=== PATIENT | male | born 1985 | race Caucasian/White ===

== ENCOUNTER 2023-11-04 16:31 | Emergency (ER) | payer OTHER, SELFPAY ==
[2023-11-04 16:38] VITALS: BP 131/74; PULSE 79; RESP 18; TEMP 36.4; O2SAT 97; BMI 27.4
--- NOTE | 2023-11-04 17:07 | CRLHL7_ITS ---
For Patients: As a result of the Cures Act, medical imaging exams and procedure reports are released immediately into your electronic medical record. You may view this report before your referring provider. If you have questions, please contact your health care provider. Indication: injury Technique: Three views of the left knee. Comparison: None. Findings: No acute displaced fracture or malalignment. Moderate knee joint effusion. Impression: No acute displaced fracture or malalignment. Moderate knee joint effusion. Dictated by Chris Mcelroy MD @ 11/04/2023 6:47:29 PM (Electronically Signed)
--- NOTE | 2023-11-04 17:55 | ED.LOWEXIN ---
HPI - Extremity Injury (Lower) General Chief Complaint: Extremity Pain/Injury, Lower Stated Complaint: L knee injury Time Seen by Provider: 11/04/23 16:35 History of Present Illness HPI Narrative: This 37-year-old male comes in with left knee pain. He states that it has been giving him some trouble on and off through the last 2 or 3 months but there was no specific injury event. More recently he was running to something as he was playing with his kids and again there was no specific injury event but the next day he had much more left knee pain. He comes in now stating that he has too much pain to bear weight. There appears to be a mild swelling of his left knee area. He is reporting pain primarily along the medial aspect of his left knee. He does not report any catching or locking and does not indicate any feeling of instability. He is able to flex and extend his knee normally. Related Data Home Medications ?Medication ?Instructions ?Recorded ?Confirmed No Known Home Medications 11/04/23 11/04/23 Previous Rx's ?Medication ?Instructions ?Recorded ketorolac 10 mg tablet 10 mg PO Q8H 5 days #15 tabs 11/04/23 Allergies Allergy/AdvReac Type Severity Reaction Status Date / Time No Known Drug Allergies Allergy Verified 11/04/23 16:38 Review of Systems Status of ROS: Reports: 10 or more systems reviewed and unremarkable except as noted in History and below Narrative: Constitutional: No fevers, no weight gain or loss. Eyes: No discharge. No vision changes. HENT: No congestion, no sore throat, no ear pain. Cardiovascular: No chest pain, no palpitations. Respiratory: No shortness of breath, no wheezes, no cough. Gastrointestinal: No abdominal pain, no vomiting, no diarrhea. Genitourinary: No dysuria, no hematuria. Musculoskeletal: Normal range of motion. Left knee pain as described above. Skin: No rashes, no pruritis. Neurological: No dizziness, weakness, sensory change, speech change. Endo/Heme/Allergies: No bruising or bleeding. No polydipsia. Pysch: no suicidality, no anxiety, no insomnia. All other systems reviewed and are negative. Exam Narrative: Exam Narrative: Constitutional: Well-developed, well-nourished, no acute distress. HEENT: Normocephalic, atraumatic. Neck: Normal range of motion. Nontender. Supple. Heart: Regular. No murmurs. Normal rate. Intact distal pulses. Lungs: Clear to auscultation. No chest discomfort. No wheezes, rhonchi, or rales. Abdomen: Normal bowel sounds. Nontender. No rebound tenderness. Genitalia: Deferred. Back: No midline tenderness. Normal range of motion. Extremities: Normal range of motion. Left knee has mild swelling but no obvious effusion. Mary Lou's test shows a good endpoint. He does show a bit more laxity under valgus stress and is reporting pain along the MCL. Silvina's test also elicited pain when rotating his ankle while and knee flexed. The pain was more localized in the posterior medial aspect of his left knee. Skin: Intact. No rash. Warm. No erythema or pallor. Neurologic: No altered sensation. No weakness. Alert and oriented. Psychiatric: No suicidality. No anxiety or depression. No insomnia. Nursing notes and vitals signs are reviewed. Const: Vital Signs, click to edit/add: Vital Signs - 24 hr 11/04/23 16:38 Temperature 97.6 F Pulse Rate [Pulse Oximeter] 79 Respiratory Rate 18 Blood Pressure [Ri t Upper Arm] 131/74 Pulse Oximetry 97 Oxygen Delivery Me thod Room Air Course Vital Signs Vital signs: Initial Vital Signs Temperature 97.6 F 11/04/23 16:38 Temperature Source Temporal Artery Scan 11/04/23 16:38 Pulse Rate 79 11/04/23 16:38 Respiratory Rate 18 11/04/23 16:38 Blood Pressure 131/74 11/04/23 16:38 Blood Pressure Mean 93 11/04/23 16:38 Pulse Oximetry 97 11/04/23 16:38 Oxygen Delivery Method Room Air 11/04/23 16:38 Vital Signs Temperature 97.6 F 11/04/23 16:38 Pulse Rate 79 11/04/23 16:38 Respiratory Rate 18 11/04/23 16:38 Blood Pressure 131/74 11/04/23 16:38 Pulse Oximetry 97 11/04/23 16:38 Oxygen Delivery Method Room Air 11/04/23 16:38 Temperature 97.6 F 11/04/23 16:38 Pulse Rate 79 11/04/23 16:38 Respiratory Rate 18 11/04/23 16:38 Blood Pressure 131/74 11/04/23 16:38 Pulse Oximetry 97 11/04/23 16:38 Oxygen Delivery Method Room Air 11/04/23 16:38 MDM - Extremity Injury (Lower) MDM Narrative Medical decision making narrative: This patient comes in with left knee pain as described above. An x-ray is obtained and by my review shows no sign of fracture or foreign object. The patient states that he can put a little bit a weight on his leg but does not care to ambulate on it because of pain. He did receive a knee immobilizer because there does appear to be some laxity of his MCL compared with his right leg. He also received crutches. He is advised to follow-up with orthopedic clinic for next available appointment. A prescription for Toradol as also provided. Discharge Plan Discharge Clinical Impression: Knee MCL sprain Patient Disposition: Home, Self-Care Condition: Unchanged Additional Instructions: Use knee immobilizer and crutches as needed for ambulating. Take medication also as needed and directed. Follow up with orthopedic clinic. Arrange appointment by dialing [phone]. Return if worsening. Prescriptions: New ketorolac 10 mg tablet 10 mg PO Q8H 5 Days Qty: 15 0RF No Action No Known Home Medications Follow Up/Referrals: Provider,Not a Local [Primary Care Provider] - Stand Alone Forms: [employer] Info Instructions
== END 2023-11-04 18:33 | disposition home or self-care (01) ==
PROVIDERS: Emergency Provider Emergency Medicine Emergency Medical Services
DX: S83.8X2A Sprain of other specified parts of left knee, initial encounter (principal)
CPT/HCPCS: 73562; 99283; 99284

== ENCOUNTER 2023-11-17 12:58 | Outpatient (CLI) | payer OTHER, SELFPAY ==
--- NOTE | 2023-11-17 13:00 | MR_ITS ---
[address] [address] Phone:?[phone] Fax:?[phone] Referring Physician Information: Dakota Hilario [address] [facility] [address] Phone:?[phone] Fax:?[phone] Patient:Lexis Mcguire D.O.B:?1985 Sex:?Male Phone:?[phone] [facility] MRN:?[id number] Exam Date:?11/17/2023 EXAM: MRI EXAMINATION OF THE LEFT KNEE CLINICAL INFORMATION: Left knee pain. History of injury. No history of surgery to this area. Evaluate meniscal tear. TECHNICAL INFORMATION: Coronal PD and STIR. Axial PD and T2 fat saturation. Sagittal PD and PD fat saturation images acquired. No prior studies for comparison. INTERPRETATION: Bones: Defined abnormal marrow edema signal along the periphery of the medial tibial plateau. No evidence for occult fracture or osseous contusion. No other abnormal bone marrow edema pattern is identified. Ligaments and tendons: The medial collateral ligament is intact, without acute sprain or tear. The iliotibial band, fibular collateral ligament, biceps femoris tendon and popliteus tendon all are intact. The anterior cruciate ligament is intact without acute sprain or tear. The posterior cruciate ligament is intact. Extensor Mechanism: The patellar and quadriceps tendons are intact. The medial and lateral retinacula are intact. Knee Joint: There is a large knee joint effusion. No discrete popliteal cyst. There is no discrete loose body seen within the joint. Medial Compartment: There is a 1.9 cm segment of tearing involving the posterior horn medial meniscus. Tearing along the undersurface and involving the apical margin as well as more complex peripheral tearing. Series 6 image 8 as well as series 7 images 21 and 22 demonstrate a resultant 6 mm flap fragment flipped just around the corner along side the periphery of the tibial plateau at the junction of body and posterior horn. No evidence for a parameniscal cyst. There is no focal chondral defect. No other significant changes of chondromalacia. Lateral Compartment: There is no evidence for discrete lateral meniscal tear. No displaced flap fragment or parameniscal cyst. There is no focal chondral defect. No other significant changes of chondromalacia. Patellofemoral articulation: There is no focal chondral defect. No other significant chondromalacia. CONCLUSION: 1. Approximate 1.9 cm segment of complex tearing involving the posterior horn medial meniscus. There is a small resultant flap fragment flipped just around the corner peripheral to the tibial plateau at the junction of body and posterior horn. 2. Adjacent reactive marrow edema signal involves the periphery of the medial tibial plateau. 3. No lateral meniscal tear. The cruciate ligaments are intact. 4. The articular cartilage of the knee is preserved. 5. Large knee joint effusion. KES Electronically signed on 11/18/2023 10:54:00 AM by Mike Andrade M.D.
== END 2023-11-17 12:59 | disposition home or self-care (01) ==
LOC: MRI 13:00
PROVIDERS: Visit Provider Physician Assistant Surgical
DX: M25.562 Pain in left knee (principal); S83.232A Complex tear of medial meniscus, current injury, left knee, initial encounter; M25.462 Effusion, left knee
CPT/HCPCS: 73721

== ENCOUNTER 2023-12-26 10:07 | Day surgery (SDC) | payer OTHER, SELFPAY ==
[2023-12-26] VITALS (13 sets, daily range): BP systolic 102–141; BP diastolic 61–99; PULSE 52–66; RESP 12–16; TEMP 36.2–36.6; O2SAT 94–100; BMI 29.9
[2023-12-26] MEDS: SODIUM CHLORIDE 0.9 % (FLUSH) 10 ML SYRINGE IVF (10:37)
[2023-12-26] MEDS: CEFAZOLIN 2 GM in 0.9 % SODIUM CHLORIDE Mini-bag 100 ML IVPB (11:01)
[2023-12-26] MEDS: ROPIVACAINE 0.5% 30 ML 150 MG INJECTION (11:27)
--- NOTE | 2023-12-26 11:28 | W.PM.H&PU ---
History & Physical Update History & Physical Update H&P Reviewed and patient assessed: No changes noted
--- NOTE | 2023-12-26 11:30 | PM.ORPRC ---
Procedure Note Date of procedure: 12/26/23 Procedure: PREOPERATIVE DIAGNOSIS: 1. Left knee medial meniscus tear POSTOPERATIVE DIAGNOSIS: 1. Left knee medial meniscus tear PROCEDURE: 1. Left knee arthroscopic partial medial meniscectomy SURGEON: Osmar Wolfe M.D. MOTOR VEHICLES INSPECTOR: Dustin HERRERA. Of note, an occupational therapist's assistant was critical for this case to aid in patient positioning, knee manipulation, instrument exchange, and closure. ANESTHESIA: Spinal EBL: 5 mL TOURNIQUET: 20 minutes at 300 torr COMPLICATIONS: None evident INDICATIONS: The patient is a pleasant 38-year-old male who has experienced left knee pain particularly with any twisting or turning. Physical exam was concerning for medial meniscus tear, this was confirmed on MRI. Additionally, attempted nonoperative management has been tried, and failed. Thus, surgery was recommended. FINDINGS: Complex tearing posterior horn to midbody medial meniscus. Posterior root was intact. 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 Grade 1 chondromalacia lateral compartment. Intact lateral meniscus. Healthy articular cartilage patellofemoral compartment. ACL and PCL intact and robust. No loose bodies evident. Moderate effusion upon entering the joint. DESCRIPTION OF PROCEDURE: After a thorough discussion of risks, benefits, and alternatives, the patient was brought to the operating room and placed upon the operating table. Induction of anesthesia was undertaken as previously noted. 2g iv Ancef was administered within 1 hr of incision preoperatively. Appropriate time-out was performed identifying proper patient, site, and procedure. The left lower extremity was prepped and draped in the appropriate sterile fashion using ChloraPrep. The limb was exsanguinated and tourniquet inflated. Anterolateral and anteromedial portals were established with an 11 blade, and a diagnostic arthroscopy was performed. This identified the findings as noted above. Following the diagnostic arthroscopy, a partial medial menisectomy was performed with the combination of basket forceps and a motorized shaver. Following this, the meniscus was re-probed and found to be stable. Approximately 25 % of the overall meniscus required resection. At this stage, the shaver was reinserted into the suprapatellar pouch and all remaining meniscal debris was evacuated. Instruments were removed, excess fluid was drained, and closure performed with 4-0 Monocryl with Steri-Strips. Dressings were applied, the tourniquet deflated, and the patient was awoken from anesthesia and transferred to the PACU in stable condition. PLAN: 1. Weightbear as tolerated operative extremity. Crutch / walker ambulation assistance PRN. Straight leg raise to be initiated starting tomorrow by the patient. 2. Ice, acetominophen and/or ibuprofen, and oxycodone for pain as needed. 3. Knee range of motion and quad sets/straight leg raise regularly 4. Follow up with PA visit in 7-10 days. for a wound check. Initiate physical therapy at that time
--- NOTE | 2023-12-26 11:39 | W.ANESCHARGE ---
Anesthesia Charges Start Date/Time Anesthesia Start Date: 12/26/23 Anesthesia Start Time: 10:48 Stop Date/Time Anesthesia Stop Date: 12/26/23 Anesthesia Stop Time: 11:38
--- NOTE | 2023-12-26 11:43 | SUR.PHASEI ---
Patient came to PACU awake but drowsy, able to answer questions when asked. No pain or nausea, unable to feel touch or move toes at this time.
--- NOTE | 2023-12-26 11:47 | W.ANESCHARGE ---
Anesthesia Charges Start Date/Time Anesthesia Start Date: 12/26/23 Anesthesia Start Time: 10:48 Stop Date/Time Anesthesia Stop Date: 12/26/23 Anesthesia Stop Time: 11:38
--- NOTE | 2023-12-26 12:01 | SUR.PHASEI ---
Patient is comfortable and awake, no complains of pain or nausea. Patient meets Anesthesia discharge criteria from PACU
== END 2023-12-26 13:45 | disposition home or self-care (01) ==
PROVIDERS: Visit Provider Orthopaedic Surgery Sports Medicine
PROC: (CPT 29870; principal; 2023-12-26 11:00)
DX: S83.242A Other tear of medial meniscus, current injury, left knee, initial encounter (principal)
CPT/HCPCS: 29881; 01400; J0690; J1100; J2250; J2405; J2704; J2795; J3010